=== PATIENT | female | born 1995 | race Two or more races ===

== ENCOUNTER 2023-08-04 19:17 | Emergency (ER) | payer OTHER ==
[~2023-08-04] VITALS: Ht 152.4 cm; Wt 66.8 kg
[~2023-08-04 19:17] MED LIST: ACET-683 PO; COLA100C5 PO; OXYC-517 PO; PRENTAB9 PO
[2023-08-04 19:18] VITALS: BP 111/77; TEMP 98.7; O2SAT 94
[2023-08-05] MEDS ORDERED: MUCI600T31 PO (09:26)
[2023-08-05] MEDS ORDERED: VENTAER INH (11:06)
[2023-08-05] MEDS ORDERED: BENZ200C70 PO (11:06)
== END 2023-08-04 22:30 | disposition left against medical advice (07) ==
LOC: M ED 19:17
DX: Z53.21 Procedure and treatment not carried out due to patient leaving prior to being seen by health care provider (principal)

== ENCOUNTER → 2023-10-21 | Outpatient (REF) | payer OTHER ==
[~2023-10-21] MED LIST changes: +BENZ200C70 PO; +MUCI600T31 PO; +VENTAER INH
== END ==
LOC: M SFHCWAGY 15:40
PROVIDERS: ATTEND Nurse Practitioner Family
DX: Z12.4 Encounter for screening for malignant neoplasm of cervix (principal)
CPT/HCPCS: 87624; G0123

== ENCOUNTER → 2025-10-17 | Outpatient (REF) | payer BC, OTHER | LOC: M LAB REF 17:18 | PROVIDERS: ATTEND Nurse Practitioner Family | DX: Z33.1 Pregnant state, incidental (principal) ==